=== PATIENT | male | born 1940 | race Caucasian/White ===

== ENCOUNTER 2023-08-29 11:35 | Emergency (ER) | payer OTHER ==
[2023-08-29] MEDS ORDERED: Morphine 2 MG/ML SYRINGE IM ONE (12:51)
[2023-08-29] MEDS ORDERED: Naloxone 0.4 MG/ML SDV IVPUSH PRN (12:51)
[2023-08-29] MEDS ORDERED: Ondansetron 4 MG Tab.DIS PO ONE (12:53)
== END 2023-08-29 15:22 | disposition home or self-care (01) ==
LOC: JD.ED 11:35
DX: S42.401A Unspecified fracture of lower end of right humerus, initial encounter for closed fracture (principal); R07.81 Pleurodynia; Z88.2 Allergy status to sulfonamides; W19.XXXA Unspecified fall, initial encounter
CPT/HCPCS: 29105; 71101; 73080; 96372; 99284; A9270; J2270

== ENCOUNTER 2023-09-02 12:47 | Emergency (ER) | payer OTHER | END 2023-09-02 15:52 | disposition home or self-care (01) | LOC: JD.ED 12:47 | DX: S42.401D Unspecified fracture of lower end of right humerus, subsequent encounter for fracture with routine healing (principal); I10 Essential (primary) hypertension; Z86.16 Personal history of COVID-19; Z79.899 Other long term (current) drug therapy; Z88.2 Allergy status to sulfonamides; W18.30XD Fall on same level, unspecified, subsequent encounter | CPT/HCPCS: 99283 ==